=== PATIENT | female | born 1990 | race Two or more races ===

== ENCOUNTER 2017-09-22 15:47 | Emergency (ER) | payer OTHER ==
[2017-09-22] MEDS: IBUPROFEN 800 MG TAB PO (17:34)
[2017-09-22] MEDS: ACETAMINOPHEN 325 MG TAB PO (17:34)
== END 2017-09-22 18:26 | disposition home or self-care (01) ==
LOC: M ED 15:47
DX: J09.X2 Influenza due to identified novel influenza A virus with other respiratory manifestations (principal); Z79.3 Long term (current) use of hormonal contraceptives
CPT/HCPCS: 87804

== ENCOUNTER → 2019-07-20 | Outpatient (REF) | payer OTHER ==
[~2019-07-20] MED LIST: LEVO0.1T PO
== END ==
LOC: M SFHCLERA 11:14
PROVIDERS: ATTEND Nurse Practitioner Family
DX: J02.9 Acute pharyngitis, unspecified (principal)